=== PATIENT | male | born 1965 | race Caucasian/White ===

== ENCOUNTER 2018-10-02 07:58 | Inpatient (IN) | payer MEDICAID ==
[~2018-10-02] VITALS: Ht 170.2 cm; Wt 64.6 kg
--- NOTE | 2018-10-02 07:58 | NUR ---
Placed in room 5 . Placed on bmet, blood pressure machine and pulse oximeter. To gown for exam. Side rails up. Report given to ARMIDA Lindsey.
[2018-10-02 08:09] VITALS: BP_SYST 132
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
[2018-10-02 08:19] LABS: HEMOGLOBIN 11.2 g/dL (14.0-18.0); RED BLOOD CELL COUNT(AUTO) 4.24 MIL/uL (4.2-6.2); WHITE BLOOD COUNT (AUTO) 7.6 K/uL (4.8-10.8)
[2018-10-02 08:20] LABS: BASOPHILS # (AUTO) 0.1 K/uL (0.0-0.2); BASOPHILS % (AUTO) 0.8 % (0.0-2.0); EOSINOPHILS # (AUTO) 0.3 K/uL (0.0-0.4); EOSINOPHILS % (AUTO) 3.4 % (0.0-4.0); HEMATOCRIT 34.9 % (36-54); LYMPHOCYTES # (AUTO) 1.2 K/uL (1.0-5.5); LYMPHOCYTES % (AUTO) 15.4 % (20.5-51.5); MEAN CORPUSCULAR HEMOGLOBIN 26 pg (27-31); MEAN CORPUSCULAR HGB CONC 32 % (32-36); MEAN CORPUSCULAR VOLUME 82 fL (79.0-98.0); MONOCYTES # (AUTO) 0.7 K/uL (0.0-1.0); MONOCYTES % (AUTO) 8.6 % (1.7-9.3); NEUTROPHILS # (AUTO) 5.5 K/uL (1.8-7.7); NEUTROPHILS % (AUTO) 71.8 % (40.0-70.0); PLATELET COUNT (AUTO) 334 K/uL (130-430); RED CELL DISTRIBUTION WIDTH 16.8 % (9.0-15.0)
[2018-10-02 08:30] LABS: ANION GAP 9 (5-15); CALCIUM 8.8 mg/dL (8.4-11.0); CHLORIDE 102 mmol/L (98-107); CREATININE 0.95 mg/dL (0.55-1.30); GLUCOSE 80 mg/dL (70-99); POTASSIUM 3.5 mmol/L (3.5-5.1); SODIUM SERUM 138 mmol/L (136-145); UREA NITROGEN, BLOOD 15 mg/dL (8-21)
--- NOTE | 2018-10-02 08:30 | NUR ---
Pt resting in bed, anxious, not violent, not agitated. Cooperative with medical staff and treatment.
[2018-10-02 08:31] LABS: GFR AFRICAN AMERICAN 107 mL/min (>90)
[2018-10-02 08:35] LABS: ALANINE AMINOTRANSFERASE 21 U/L (12-78); ALBUMIN 3.9 g/dL (3.4-4.8); ASPARTATE AMINOTRANSFERASE 30 U/L (10-37); TOTAL BILIRUBIN 0.4 mg/dL (0.0-1.0)
--- NOTE | 2018-10-02 08:35 | NUR ---
DR Martin at bedside
[2018-10-02 08:38] LABS: ACETAMINOPHEN < 1 ug/mL (1-30)
[2018-10-02 08:39] LABS: ALCOHOL, BLOOD < 3 mg/dL (<10)
--- NOTE | 2018-10-02 08:40 | NUR ---
ER Dr. Martin at bedside examining patient.
[2018-10-02] MEDS ORDERED: NACL 0.9% 1,000 ML IV ONE (08:45)
--- NOTE | 2018-10-02 08:45 | NUR ---
EKG 12 lead completed
--- NOTE | 2018-10-02 08:45 | NUR ---
Pt resting in bed, anxious, not violent, not agitated. Cooperative with medical staff and treatment. Completed EKG, Dr. Martin examined patient, awaiting new orders
--- NOTE | 2018-10-02 09:00 | NUR ---
Pt resting in bed, anxious, not violent, not agitated. Cooperative with medical staff and treatment.
--- NOTE | 2018-10-02 09:15 | NUR ---
# 18 gauge angiocath placed to RT AC. Use of asceptic technique. Opsite placed over site. Blood return noted. Blood for lab drawn from site. Flushed with 10 cc of normal saline. No evidence of infiltration noted. Patient tolerated well.
--- NOTE | 2018-10-02 09:15 | NUR ---
Peripheral IV inserted to RT AC, 18GA, x1 attempt. Flushed well, line is patent, NS bolus running. Pt resting in bed, anxious, not violent, not agitated. Cooperative with medical staff and treatment.
--- NOTE | 2018-10-02 09:20 | NUR ---
BREAKFAST TRAY PROVIDED
--- NOTE | 2018-10-02 09:30 | NUR ---
Patient sitting up eating breakfast. Pt is not violent or agitated at this time. Patient remains cooperative with medical staff and treatment. Side rails are up, bed locked in lowest position, will continue to monitor.
--- NOTE | 2018-10-02 09:38 | NUR ---
Security in to wand patient.
--- NOTE | 2018-10-02 09:45 | NUR ---
Patient resting in bed with eyes closed. Pt is not violent or agitated at this time. Patient remains cooperative with medical staff and treatment. Side rails are up, bed locked in lowest position, will continue to monitor.
--- NOTE | 2018-10-02 10:00 | NUR ---
Patient attempting to give urine sample, in bed with urinal. Pt is not violent or agitated at this time. Patient remains cooperative with medical staff and treatment. Side rails are up, bed locked in lowest position, will continue to monitor.
--- NOTE | 2018-10-02 10:15 | NUR ---
Pt not cooperating with urine sample, filled urinal with water from cup. Otherwise not combative or agressive. Side rails are up, bed locked in lowest position, will continue to monitor.
--- NOTE | 2018-10-02 10:20 | NUR ---
Patient refusing uring sample, patient urinated on clothing and bed linens rather than give urine sample.
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
--- NOTE | 2018-10-02 10:45 | NUR ---
Patient resting in bed with eyes closed. Pt is not violent or agitated at this time. Side rails are up, bed locked in lowest position, will continue to monitor.
[2018-10-02 11:00] LABS: BARBITURATE, URINE NEGATIVE (NEG <=200); BENZODIAZEPINE, URINE POSITIVE (NEG <=150); CANNABINOID, URINE NEGATIVE (NEG <=50); COCAINE, URINE NEGATIVE (NEG <=150); METHAMPHETAMINES SCREEN,URINE POSITIVE (NEG <=500); OPIATE, URINE POSITIVE (NEG <=100); PHENCYCLIDINE SCREEN,URINE NEGATIVE (NEG <=25); URINE AMPHETAMINE POSITIVE (NEG <=500); URINE METHADONE POSITIVE (NEG <=200)
--- NOTE | 2018-10-02 11:00 | NUR ---
Patient laying on his side with eyes closed, is no longer following instructions, seems aggitated but is not verbalizing, not responding to questions, not violent or combative. Side rails are up, bed locked in lowest position, will continue to monitor.
[2018-10-02 11:01] LABS: UR TRICYCLIC ANTIDEPRESSANTS NEGATIVE (NEG <=300); URINE OXYCODONE SCREEN NEGATIVE (NEG <=100); URINE PROPOXYPHENE SCREEN NEGATIVE (NEG <=300)
--- NOTE | 2018-10-02 11:15 | NUR ---
Patient continues laying on his side with eyes closed, will not answer questions, will not follow instructions, seems aggitated but is not verbalizing, not violent or combative. Side rails are up, bed locked in lowest position, will continue to monitor.
--- NOTE | 2018-10-02 11:30 | NUR ---
Patient continues laying on his side with eyes closed, continues not responding to questions, remains not violent or combative. Side rails are up, bed locked in lowest position, will continue to monitor.
--- NOTE | 2018-10-02 11:45 | NUR ---
Patient sleeping, laying on his side with eyes closed, remains not violent or combative. Side rails are up, bed locked in lowest position, will continue to monitor.
--- NOTE | 2018-10-02 12:00 | NUR ---
Note davenettie in ED - 10/02/18 at 1240 by [email or web address] Patient sleeping, remains non violent or combative. Side rails are up, bed locked in lowest position, will continue to monitor.
--- NOTE | 2018-10-02 12:00 | NUR ---
Vital signs taken, patient sleeping, laying on his side with eyes closed, remains not violent or combative. Side rails are up, bed locked in lowest position, will continue to monitor.
--- NOTE | 2018-10-02 12:15 | NUR ---
Patient sleeping, remains non violent or combative. Side rails are up, bed locked in lowest position, will continue to monitor.
--- NOTE | 2018-10-02 12:30 | NUR ---
Patient sleeping, remains non violent or combative. Side rails are up, bed locked in lowest position, will continue to monitor.
--- NOTE | 2018-10-02 12:45 | NUR ---
Patient sleeping, no signs of distress noted, not combative or hostile. Bed locked in lowest position, will continue to monitor.
--- NOTE | 2018-10-02 13:00 | NUR ---
Patient sleeping, no signs of distress noted, not combative or hostile. Bed locked in lowest position, will continue to monitor.
--- NOTE | 2018-10-02 13:15 | NUR ---
LUNCH TRAY PROVIDED
[2018-10-02] MEDS ORDERED: METHADONE HCL 10 MG TABLET PO ONE (13:30)
[2018-10-02] MEDS ORDERED: clonazePAM 0.5 MG TABLET PO ONE (13:30)
--- NOTE | 2018-10-02 13:45 | NUR ---
Patient laying in bed resting, offered lunch but patient refused, is able to follow directions again, not combative or hostile. Bed locked in lowest position, will continue to monitor.
--- NOTE | 2018-10-02 14:00 | NUR ---
Patient laying in bed resting, is able to follow directions again, not combative or hostile. Bed locked in lowest position, will continue to monitor.
--- NOTE | 2018-10-02 14:15 | NUR ---
Patient sleeping, no sign of distress noted, side rails are up, bed locked in lowest position, will continue to monitor.
--- NOTE | 2018-10-02 14:30 | NUR ---
Patient sleeping, no sign of distress noted, side rails are up, bed locked in lowest position, will continue to monitor.
--- NOTE | 2018-10-02 14:45 | NUR ---
Patient saying he wants to leave, then closes eyes and doesn't respond to questions. Still not combative or agressive, but not cooperative. No sign of distress noted, side rails are up, bed locked in lowest position, will continue to monitor.
--- NOTE | 2018-10-02 14:50 | NUR ---
PET arrived to evaluate patient.
--- NOTE | 2018-10-02 15:00 | NUR ---
Patient resting quietly with eyes closed, no signs of distress noted, not agressive or combative at this time, bed locked in lowest position, will continue to monitor.
[2018-10-02] MEDS ORDERED: CLINDAMYCIN 900 mg/50mL D5W 50 ML IV ONE (15:45)
--- NOTE | 2018-10-02 15:45 | NUR ---
Patient resting with eyes closed, no signs of distress noted, no signs of aggitation or agression. Bed locked in lowest position, will continue to monitor.
--- NOTE | 2018-10-02 16:00 | NUR ---
Patient resting with eyes closed, no signs of distress noted, no signs of aggitation or agression. Bed locked in lowest position, will continue to monitor.
--- NOTE | 2018-10-02 16:15 | NUR ---
Patient delusional trying to get out of bed, trying to push past and leave building, he is saying someone is trying to kill him. Another nurse assisted in getting him back into bed. Patient is now lying in bed calm.
--- NOTE | 2018-10-02 16:30 | NUR ---
Patient remains delusional trying to get out of bed.
[2018-10-02] MEDS ORDERED: DIPHENHYDRAMINE INJ 50 MG/ML VIAL IM ONE (16:45)
[2018-10-02] MEDS ORDERED: DIPHENHYDRAMINE INJ 50 MG/ML VIAL IVP ONE (16:45)
[2018-10-02] MEDS ORDERED: LORazepam 2 MG/ML VIAL (FOR ER USE) IM ONE (16:45)
[2018-10-02] MEDS ORDERED: HALOPERIDOL LACTATE 5 MG/ML VIAL IM ONE (16:45)
[2018-10-02] MEDS ORDERED: LORazepam 2 MG/ML VIAL (FOR ER USE) IVP ONE (16:45)
[2018-10-02] MEDS ORDERED: HALOPERIDOL LACTATE 5 MG/ML VIAL IVP ONE (16:45)
--- NOTE | 2018-10-02 16:45 | NUR ---
Patient remains delusional trying to get out of bed.
--- NOTE | 2018-10-02 17:00 | NUR ---
Patient getting more and more aggitated, remains delusional trying to get out of bed.
--- NOTE | 2018-10-02 17:15 | NUR ---
Patient agressive and combative, trying to push past nurses and leave, danger to self, restraints started, sedatives administered as ordered. Will continue to monitor.
--- NOTE | 2018-10-02 17:30 | NUR ---
Patient now sleeping, restraints are off, but are at bedside. Breathing is even and unlabored, vitals WNL, no sign of distress noted, will continue to monitor.
--- NOTE | 2018-10-02 17:42 | NUR ---
Patient will be admitted to care of Dr. Oswald. Admitted to Medsurg unit. ARMIDA Casey will call back with room assignment. Belongings list completed. Summary report printed. Report will be given at bedside.
--- NOTE | 2018-10-02 17:45 | NUR ---
Patient is sleeping, restraints are off, but are at bedside. Breathing is even and unlabored, O2 Sat WNL, no sign of distress noted, bed locked in lowest position, will continue to monitor.
--- NOTE | 2018-10-02 18:15 | NUR ---
ADMISSION NOTE Received patient from ER via jaceryogesh, received report from michael HUFFMAN. Patient admitted with diagnosis of cellulitis. Patient oriented to hospital routine, call light, toileting and safety.
[2018-10-02 18:16] VITALS: BP_SYST 114
--- NOTE | 2018-10-02 18:16 | NUR ---
Patient transferred via gurney and 2 RNs to [facility] room 105A, bedside report given to Cecilia RN for continuation of care.
--- NOTE | 2018-10-02 18:35 | NUR ---
OPENING MY NOTES:PT WAS SLEEPING WHEN HE CAME AT ROOM 105A.NO SIGNS OF ANY DISTRESS.CONTINUE OF MONITORING.
--- NOTE | 2018-10-02 18:45 | NUR ---
PT IS RESTING NO SIGNS OF ANY DISTRESS.CONTINUE OF MONITORING.
--- NOTE | 2018-10-02 19:00 | NUR ---
PT STILL SLEEPING DIELECTRIC MACHINE OPERATOR SIGNS OF ANY DISTRESS,WILL CONTINUE OF MONITORING.
--- NOTE | 2018-10-02 19:15 | NUR ---
PT STILL SLEEPING NO SIGNS OF ANY DISTRESS.WILL CONTINUE OF MONITORING.
--- NOTE | 2018-10-02 19:30 | NUR ---
OPENING NOTES Pt and endorsement received from day shift nurse. Pt is resting in bed with both eyes closed. With visible chest rise and fall with unlabored breathing noted. Sitter Analyn at bedside. No signs of acute distress or SOB noted. Safety precautions in place with 3 side rails up, bed alarm on, locked and in lowest position. Call light with pt. Will continue to monitor.
--- NOTE | 2018-10-02 19:30 | NUR ---
PT STILL SLEEPING,NIGHT NURSE CAME TO CHECKED THE PT.WILL CONTINUE OF MONITORING.
--- NOTE | 2018-10-02 19:45 | NUR ---
PT IS RESTING,NO SIGNS OF ANY DISTRESS.WILL CONTINUE OF MONITORING.
[2018-10-02] MEDS ORDERED: MORPHINE 4 MG/ML INJ. SYRINGE IVP PRN (20:00)
[2018-10-02] MEDS ORDERED: ONDANSETRON HCL 4 MG/2 ML VIAL IVP PRN (20:00)
[2018-10-02] MEDS ORDERED: ACETAMINOPHEN 325 MG TABLET PO PRN (20:00)
[2018-10-02] MEDS ORDERED: METOCLOPRAMIDE HCL 10 MG/2 ML VIAL IVP PRN (20:00)
--- NOTE | 2018-10-02 20:00 | NUR ---
PT QUIETLY SLEEPING NO SIGNS OF ANY DISTRESS.WILL CONTINUE OF MONITORING.
--- NOTE | 2018-10-02 20:15 | NUR ---
PT IS SLEEPING.NO SIGNS OF ANY DISTRESS.WILL CONTINUE OF MONITORING.
--- NOTE | 2018-10-02 20:30 | NUR ---
PT STILL SLEEPING,NO SIGNS OF ANY DISTRESS. WILL CONTINUE OF MONITORING.
--- NOTE | 2018-10-02 20:31 | NUR ---
CONSULTATION PAGED/CALLED Reason for Consultation: SCHIZOPHRENIA Person Who was Notified: ADONIS Consulting Physician: DOMENICO Hydraulic Punch Press Operator Specialty: Ordering Physician: SAVANAH
--- NOTE | 2018-10-02 20:45 | NUR ---
PT STILL SLEEPING ,NO SIGNS OF ANY DISTRESS WILL CONTINUE OF MONITORING.
[2018-10-02] MEDS ORDERED: VANCOMYCIN HCL 1 GM/NS PREMIX 250 ML IV SCH (21:00)
--- NOTE | 2018-10-02 21:00 | NUR ---
PT STILL SLEEPING,NO SIGNS OF ANY DISTRESS WILL CONTINUE OF MONITORING.
[2018-10-02] MEDS ORDERED: VANCOMYCIN HCL 1000 MG/VIAL IV ONE (21:08)
[2018-10-02] MEDS ORDERED: cefTRIAXone 1 GM IVPB PREMIX 0 ML IV ONE (21:08)
--- NOTE | 2018-10-02 21:15 | NUR ---
PT WOKE UP AND ASKED FOR URINAL,THEN SUDDENLY BACK TO SLEEP.NO SIGNS OF ANY DISTRESS WILL CONTINUE OF MONITORING.
--- NOTE | 2018-10-02 21:30 | NUR ---
PT SI SLEEPING,NO SIGNS OF ANY DISTRESS WILL CONTINUE OF MONITORING.
--- NOTE | 2018-10-02 21:45 | NUR ---
PT IS SLEEPING NO SIGNS OF ANY DISTRESS WILL CONTINUE OF MONITORING.
[2018-10-02 21:59] VITALS: BP_SYST 105
--- NOTE | 2018-10-02 22:00 | NUR ---
PT STILL SLEEPING SOMETIMES HE MOVES ANG CONTINUE SLEEPING.NO SIGNS OF ANY DISTRESS.WILL CONTINUE OF MONITORING.
--- NOTE | 2018-10-02 22:15 | NUR ---
PT STILL SLEEPING,NO SIGNS OF ANY DISTRESS. WILL CONTINUE OF MONITORING.
--- NOTE | 2018-10-02 22:30 | NUR ---
PT IS SLEEPING NO SIGNS OF ANY DISTRESS CONTINUE OF MONITORING.
--- NOTE | 2018-10-02 22:45 | NUR ---
PT STILL SLEEPING,NO SIGNS OF ANY DISTRESS CONTINUE OF MONITORING.
--- NOTE | 2018-10-02 23:00 | NUR ---
PT STILL SLEEPING NO SIGNS OF ANY DISTRESS.CONTINUE OF MONITORING.
--- NOTE | 2018-10-02 23:15 | NUR ---
PT STILL SLEEPING NO SIGNS OF ANY DISTRESS,CONTINUE OF MONITORING.
--- NOTE | 2018-10-02 23:30 | NUR ---
PT STILL SLEEPING
--- NOTE | 2018-10-02 23:45 | NUR ---
PT STILL SLEEPING,NO SIGNS OF ANY DISTRESS CONTINUE OF MONITORING.
[2018-10-03] VITALS (8 sets, daily range): BP systolic 93–132
--- NOTE | 2018-10-03 | NUR ---
PT STILL SLEEPING WHILE TAKING HIS VITAL SIGNS,NO SIGNS OF ANY DISTRESS CONTINUE OF MONITORING.
--- NOTE | 2018-10-03 00:15 | NUR ---
PT STILL SLEEPING,NO SIGNS OF ANY DISTRESS.CONTINUE OF MONITORING.
--- NOTE | 2018-10-03 00:30 | NUR ---
PT SLEEPING ON BED NO SIGNS OF ANY DISTRESS 3SIDE RAILS IS UP.CONTINUE OF MONITORING.
--- NOTE | 2018-10-03 00:45 | NUR ---
PT STILL SLEEPING NO SIGNS OF ANY DISTRESS CONTINUE OF ANY DISTRESS.
--- NOTE | 2018-10-03 01:00 | NUR ---
PT IS RESTING,CONTINUE OF MONITORING
--- NOTE | 2018-10-03 01:15 | NUR ---
PT RESTING,CONTINUE OF MONITORING.
--- NOTE | 2018-10-03 01:17 | NUR ---
RESTING Pt is resting in bed with both eyes closed. With visible chest rise and fall with unlabored breathing noted. Pt easily arousable with light shaking, would respond and speak clearly then goes back to sleep. No signs of acute distress or SOB noted. SitDe Luna at bedside at this time. Safety precautions in place and call light with pt. Will continue to monitor.
--- NOTE | 2018-10-03 01:30 | NUR ---
PT STILL SLEEPING NO SIGNS OF ANY DISTRESS.CONTINUE OF MONITORING.
--- NOTE | 2018-10-03 01:45 | NUR ---
PT CHANGED HIS POSITIONED NOW HIS FOLDING HIS 2 LEGS,ASKED HIM IF HIS DONE WITH URINAL HE REPLIED NOT YET.NO SIGNS OF ANY DISTRESS.CONTINUE OF MONITORING.
--- NOTE | 2018-10-03 02:00 | NUR ---
PT STILL SLEEPING,NO SIGNS OF ANY DISTRESS CONTINUE OF MONITORING.
--- NOTE | 2018-10-03 02:15 | NUR ---
PT WOKE UP HE VOID 450ML OF URINE THEN HE BACK TO SLEEP.NO SIGNS OF ANY DISTRESS.CONTINUE OF MONITORING.
--- NOTE | 2018-10-03 02:30 | NUR ---
PT IS SLEEPING,NO SIGNS OF ANY DISTRESS.CONTINUE OF MONITORING.
--- NOTE | 2018-10-03 02:45 | NUR ---
PT STILL SLEEPING,NO SIGNS OF ANY DISTRESS.CONTINUE OF MONITORING.
--- NOTE | 2018-10-03 03:00 | NUR ---
PT STILL SLEEPING,NO SIGNS OF ANY DISTRESS.CONTINUE OF MONITORING.
--- NOTE | 2018-10-03 03:08 | NUR ---
RESTING Pt is resting in bed with both eyes closed. With visible chest rise and fall with unlabored breathing noted. Pt easily arousable to voice and light shaking, would respond and speak clearly then goes back to sleep. No signs of acute distress or SOB noted. Sitter Analyn at bedside. Safety precautions in place and call light with pt. Will continue to monitor.
--- NOTE | 2018-10-03 03:15 | NUR ---
PT STILL SLEEPING MID NIGHT NURSE GIAN PARKER THAT 5150 OBSERVATION IS NO LONGER CLOSING MY NOTES. Addendum: 10/03/18 at 0515 by Leona Ambrosio CNA PT STILL ON HOLD NO NEED TO NOTES EVERY 15 MINUTES
[2018-10-03] MEDS: MORPHINE 4 MG/ML INJ. SYRINGE IVP PRN ×2 (04:13→21:13)
--- NOTE | 2018-10-03 04:13 | NUR ---
MORPHINE 4MG GIVEN Pt complained of generalized body pain with a scale of 10/10. Morphine 4mg IVP given as ordered. No signs of acute distress or SOB noted. Encouraged deep breathing exercises and position of comfort. Safety precautions in place and call light with pt. Will continue to monitor.
--- NOTE | 2018-10-03 06:10 | NUR ---
METHADONE CLINIC Spoke to Brittany from [facility] that someone left a message to their clinic asking the dosage of Methadone that the pt takes. Brittany said to fax them a consent for "Medical Record Release" signed by the pt and they will fax the information about the pt's Methadone dosage. Their fax number is [phone]. Informed charge nurse Lou and will endorse to day shift nurse.
--- NOTE | 2018-10-03 06:26 | NUR ---
CLOSING NOTES Pt is resting in bed with both eyes closed. With visible chest rise and fall with unlabored breathing noted. Sitter ARMIDA Moreira at bedside. No complains of pain at this time. No signs of acute distress or SOB noted. All needs attended throughout the shift. Safety precautions maintained with 3 side rails up, bed alarm on, locked and in lowest position. Call light with pt. Will endorse to day shift nurse.
--- NOTE | 2018-10-03 06:49 | NUR ---
Nutrition Update Yobany Scale 17 noted. Pt admitted for cellulitis Diet: regular diet BMI: 22.3 kg/m2 RD to follow per nutrition care standards.
--- NOTE | 2018-10-03 06:58 | NUR ---
Woke up and opened eyes momentarily. Asked to call Methadone clinic to find out about his methadone. Informed we're working on it. Closed eyes calmly and went back to sleep.
--- NOTE | 2018-10-03 07:41 | NUR ---
AM rounds: Received patient asleep. Verbally responsive. Cooperative. Does not want to eat breakfast yet, wants to back to sleep.
--- NOTE | 2018-10-03 08:36 | NUR ---
Social Service Note: CLINICAL TRIAL SPECIALIST has reviewed pt's chart; Pt is on a 5150. CLINICAL TRIAL SPECIALIST has faxed pt's information to the [facility] ([phone] [phone]). CLINICAL TRIAL SPECIALIST will follow up with [facility] to see if they can locate a psychiatric bed.
--- NOTE | 2018-10-03 08:53 | NUR ---
Methadone Clinic: Patient states that he goes to [facility] for his methadone. Request for dosage and frequency faxed to [phone].
--- NOTE | 2018-10-03 09:12 | NUR ---
CONSULTATION PAGED/CALLED Reason for Consultation: CELLULITIS Person Who was Notified: SHONNA Consulting Physician: Cream Dipper Specialty: INFECTIOUS DSE Ordering Physician: DR. PAVON
[2018-10-03] MEDS ORDERED: METH10OR PO (09:34)
--- NOTE | 2018-10-03 10:09 | NUR ---
XRAY: Chest xray and xray of the left foot is done. Patient was cooperative.
[2018-10-03] MEDS: D5NS 1,000 ML IV SCH ×2 (10:12→21:13)
--- NOTE | 2018-10-03 11:07 | NUR ---
CT head: Test is completed without any untoward behavior. Patient was cooperative.
[2018-10-03] MEDS: VANCOMYCIN HCL 1,000 MG in NS 250 ML IV SCH ×2 (11:22→22:31)
--- NOTE | 2018-10-03 11:30 | NUR ---
Wound care: 1: Left lateral heel: Cleansed with normal saline, left open to air. 2: Left dorsal foot: Cleansed with normal saline, foam dressing placed in between big, 2nd and 3rd toe. Dorsal wound, covered with foam dressing and wrapped with kerlix.
--- NOTE | 2018-10-03 12:43 | NUR ---
Rounds: Patient is asleep but easily arousable. No distress noted.
--- NOTE | 2018-10-03 13:00 | NUR ---
Neuro assessment: Patient woke up inquiring about his methadone.Informed that medication information has been received from [facility], has yet to review. Patient went back to sleep right away.
[2018-10-03] MEDS: ceFAZolin SODIUM 1 GM in D5W 50 ML IV SCH ×2 (14:47→21:13)
--- NOTE | 2018-10-03 16:43 | NUR ---
Neuro assessment: Patient is asleep, wakes up when he has to use to urinal.
--- NOTE | 2018-10-03 17:29 | NUR ---
Chest Xray result: Result was seen by Dr. Oswald, no new order.
--- NOTE | 2018-10-03 18:20 | NUR ---
End of shift: Needs attended. Patient is asleep. No change in assessment.
--- NOTE | 2018-10-03 19:55 | NUR ---
Initial note: Received report from dayshift RN. Patient is in bed resting, no acute distress. Respirations are even and unlabored on room air. IV noted to patient's left forearm, IV fluids infusing well. Sitter at bedside for safety. Call light with patient. Safety, fall precautions in place. Will continue to monitor.
--- NOTE | 2018-10-03 20:41 | NUR ---
FOLLOW UPCONSULTATION PAGED/CALLED Reason for Consultation: SCHIZOPRENIA Person Who was Notified: JODY Consulting Physician: DOMENICO Instructional Materials Director Specialty: Ordering Physician: SAVANAH
--- NOTE | 2018-10-03 21:19 | NUR ---
Pain: Patient complaining of severe back pain. PRN Morphine 4MG indicated. Educated patient regarding medication side effects, patient verbalized understanding. Call light with patient. Will continue monitoring.
--- NOTE | 2018-10-03 23:52 | NUR ---
Rounds: Patient is resting in bed with eyes closed. No acute distress. IV fluids infusing well. Sitter at bedside, will continue to monitor.
[2018-10-04] MEDS: MORPHINE 4 MG/ML INJ. SYRINGE IVP PRN ×5 (02:45→23:54)
--- NOTE | 2018-10-04 02:45 | NUR ---
Pain: Patient is awake, complaining of severe back pain. PRN Morphine 4 MG indicated. Administered medication intravenously per MD order. Call light with patient. Sitter at bedside, will continue monitoring.
[2018-10-04] MEDS: D5NS 1,000 ML IV SCH ×3 (05:04→18:26)
[2018-10-04] MEDS: ceFAZolin SODIUM 1 GM in D5W 50 ML IV SCH ×3 (05:04→21:07)
--- NOTE | 2018-10-04 05:36 | NUR ---
Closing note: Patient is resting in bed with eyes closed. Dressing to left foot is clean, dry, intact. IV fluids infusing well. All needs met. Sitter at bedside. Will continue to monitor until endorsement of care.
--- NOTE | 2018-10-04 06:09 | NUR ---
DR ACUÑA CALLED DOCTOR DOMENICO MAYS AND SPOKE WITH HIM AND NOTIFIED HIM THAT THERE IS A CONSULT FOR HIM. THAT WAS PLACED OVER 24 HOURS AGO. AND HE SAID HIM OR SOMEONE FROM HIS GROUP WILL COME AND SEE HIM. NOTIFIED RN AND CHARGE NURSE.
--- NOTE | 2018-10-04 06:33 | NUR ---
Dr. Sanchez: MD at bedside to assess patient. Per MD, patient is cleared for discharge from a psych standpoint. Addendum: 10/04/18 at 0731 by Taz Brandt RN Received verbal order from MD to D/C patient's 5150 hold. Per MD, he will note it in his dictation. Will input additional nursing order.
--- NOTE | 2018-10-04 07:20 | NUR ---
Opening Note patient resting in bed, eyes closed, breathing unlabored and symmetrical, no signs of distress, safety precautions in place, call light and bedside table left within reach, room close to station, will continue to monitor patient
--- NOTE | 2018-10-04 08:11 | NUR ---
Pain Meds given at this time per protocol, educated patient regarding med, verbalized understanding, IV site remains patent, breathing unlabored, no other needs at this time, educated patient on use of call light for assistance, verbalized understanding, call light and bedside table left within reach, room close to station, will continue to monitor
[2018-10-04 08:13] VITALS: BP_SYST 102
[2018-10-04] MEDS: VANCOMYCIN HCL 1,000 MG in NS 250 ML IV SCH ×2 (10:52→22:13)
--- NOTE | 2018-10-04 10:55 | NUR ---
Antibiotics hung at this time as scheduled, educated patient regarding med, verbalized understanding, IV site remains patent, public health social worker at bedside, educated patient on use of call light for assistance, verbalized understanding, call light and bedside table left within reach, will continue to monitor
--- NOTE | 2018-10-04 11:18 | NUR ---
SS NOTES: MATCHBOOK ASSEMBLER met with patient at bedside for "homelessness". 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 Pt states he currently lives in his van (currently parked at [facility] parking lot) and stays around [place], where the methadone clinic ([facility]- [address], [place] [address]) is located. Pt states he has been going to that clinic for 2 years now. Pt states he has anxiety problems and receives Clonopin from his "drug dealer". Pt denies seeing a therapist/psychiatrist currently. Pt states he receives SSI of $900/month but lost his debit card on his way to the hospital and does not remember which bank the direct deposit goes to. Pt states he has a history of suicidal ideation, and a history of suicide attempt via OD on heroin "a couple of years ago". Pt states he has a history of 1 voluntary psych admission in [place]. Pt denies feeling suicidal/homicidal currently. Pt states he identifies "God" as his support but not connected to any christianity. Pt might be needing a taxi voucher, pending if pt can get a hold of daughter to pick him up upon discharge. MATCHBOOK ASSEMBLER left voicemail for security to provide pt with appropriate weather clothing. MATCHBOOK ASSEMBLER encouraged pt to call [facility] Employment Coach and request access on his SSI. MATCHBOOK ASSEMBLER informed pt to inform RN where he would want to be discharged to so that taxi voucher can be arranged ([facility] vs [facility]). MATCHBOOK ASSEMBLER provided pt with winter long-term list, Homeless Assistance Resources and Homeless waiver (on chart). ARMIDA Canchola notified of transport needs. SS correction warden will arrange taxi transport when discharge.
[2018-10-04 11:25] VITALS: BP_SYST 92
--- NOTE | 2018-10-04 11:35 | NUR ---
WOUND EVALUATION: Late note for 113 secondary to patient care. Wound Consult received from Dr. Oswald. Thank you, Dr. Oswald, for the consult. Patient received in a Jesus Bed with a mattress, awake, alert, and oriented. Patient is unable to turn independently. Yobany Score is a 17. Past Medical History: Left lower extremity cellulitis. No other past medical history was obtainable. Recent Labs: WBC 7.6, RBC 4.24, hemoglobin 11.2, hematocrit 34.9, BUN 15, creatinine 0.95, GFR 89, alkaline phosphatase 166. Microbiology: Blood culture results �2 in progress. Intrinsic factors that delay wound healing: Poor nutrition. Extrinsic factors that delay wound healing: Decreased mobility. Wound Assessment: 1. Left dorsal foot, near second toe: Wound, present on admission. Wound bed has 80% yellow slough, 20% pink tissue. No odor, no drainage. Periwound intact. Surrounding tissue has dried, crusty exudate. Wound measures 4.3 cm x 3.0 cm x 0.3 cm. 2. Left medial calcaneus: Wound, present on admission. Wound bed has 60% yellow slough, 30% black eschar, 10% red tissue. No odor, scant serous drainage. Periwound intact. Surrounding tissue has dry, flaky skin. Wound measures 2.3 cm x 3.0 cm. Recommend: Cleanse wound with normal saline. Place moisture barrier cream onto aiden-wound. Cover with foam dressing. Perform wound care daily, and as needed for dressing soiling or dislodgement. Also recommend: Encourage and assist patient as needed with repositioning every 2 hours with pillow support and off-load pressure areas with pillows for pressure re-distribution. Offload, elevate and float bilateral heels with pillows. Perform skin care and monitor skin integrity Q shift. Addendum: 10/04/18 at 1745 by Dangelo Cooper RN Addendum: Recent stated that the wounds were the result of a dog bite. The treatment for the wounds should be as follows: Cleanse wounds with normal saline. Apply moisture barrier cream to aiden-wounds. Apply Venelex ointment to wound beds. Cover with foam dressings. Perform wound care daily, and as needed for dressing soiling or dislodgement.
--- NOTE | 2018-10-04 11:35 | NUR ---
Wound Care Consult at this time, patient tolerated well, denies pain at this time, breathing unlabored and symmetrical, safety precautions in place, will continue to monitor
[2018-10-04 12:08] VITALS: BP_SYST 145
--- NOTE | 2018-10-04 12:30 | NUR ---
Dr. Margret Schmitt MD aware that patient cleared by Radha Becker
--- NOTE | 2018-10-04 14:17 | NUR ---
Antibiotics/Pain Meds given at this time, educated patient regarding meds, verbalized understanding, IV site remains patent, breathing unlabored on room air, he is positioned to his side, educated patient on use of call light for assistance, verbalized understanding, call light and bedside table left within reach, will continue to monitor
[2018-10-04 14:32] LABS: FOLATE (FOLIC ACID) 12.4 ng/mL (>3.0)
[2018-10-04 15:24] VITALS: BP_SYST 119
--- NOTE | 2018-10-04 15:51 | NUR ---
Mitesh Oswald informed him of patient's complaints of anxiety and that he takes Klonopin at home, MD gave orders for ativan, will educated patient and implement
[2018-10-04] MEDS: LORazepam 1 MG TABLET PO PRN ×2 (16:02→22:13)
--- NOTE | 2018-10-04 16:06 | NUR ---
ativan given at this time, educated patient regarding med, verbalized understanding, tolerated well by mouth, denies pain, educated patient on use of call light for assistance, verbalized understanding, call light and bedside table left within reach, will continue to monitor
[2018-10-04] MEDS ORDERED: BALSAM PERU/CASTOR OIL 60 GM OINT...G. TP ONE (18:00)
--- NOTE | 2018-10-04 18:15 | NUR ---
Awaiting pharmacy to bring venelex for wound care, spoke with Lazarus
--- NOTE | 2018-10-04 18:33 | NUR ---
Closing Note patient resting in bed, awake and alert, pain meds given at this time per protocol, educated patient regarding med, verbalized understanding, IV remains patent, new bag of fluids hung, educated patient on use of call light for assistance, verbalized understanding, call light and bedside table left within reach, will endorse to veterinary technology instructor nurse
[2018-10-04 20:00] VITALS: BP_SYST 118
--- NOTE | 2018-10-04 20:00 | NUR ---
Initial note: Received report from dayshift RN. Patient is resting in bed, no distress. Alert and oriented x4. Breathing is even, unlabored. IV fluids infusing well to left forearm IV site. Call light with patient. Will continue to monitor.
--- NOTE | 2018-10-04 23:54 | NUR ---
Pain: Patient is complaining of lower back pain 04/10. PRN Morphine 4 MG indicated. Administered medication per MD order. Education provided regarding side effects, patient verbalized understanding. Call light with patient. Will continue to monitor.
--- NOTE | 2018-10-05 00:10 | NUR ---
Wound care: Wounds to patient's dorsum and interior ankle of left foot were cleansed with NS, patted dry with sterile gauze, treated with Venelex, and covered with foam dressing. Patient tolerated well. Call light with patient. Will continue monitoring.
[2018-10-05 00:19] VITALS: BP_SYST 121
[2018-10-05] MEDS: MORPHINE 4 MG/ML INJ. SYRINGE IVP PRN ×2 (04:18→09:26)
--- NOTE | 2018-10-05 04:18 | NUR ---
Pain: Patient complaining of severe back pain. PRN Morphine 4 MG indicated. Administered medication intravenously per MD order. Call light with patient. Will continue to monitor.
[2018-10-05] MEDS: ceFAZolin SODIUM 1 GM in D5W 50 ML IV SCH (05:51)
--- NOTE | 2018-10-05 06:04 | NUR ---
Closing note: Patient is in bed resting, no distress. IV antibiotics currently infusing at this time. IV site is patent, benign. All needs met. Safety, fall precautions in place. Will endorse to batool HUFFMAN.
--- NOTE | 2018-10-05 07:13 | NUR ---
Opening Note patient resting in bed, eyes closed, positioned to his side, no signs of distress, breathing unlabored and symmetrical, safety precautions in place, call light and bedside table left within reach, will continue to monitor
[2018-10-05] MEDS ORDERED: BALSAM PERU/CASTOR OIL 60 GM OINT...G. TP SCH (09:00)
[2018-10-05 09:30] VITALS: BP_SYST 120
--- NOTE | 2018-10-05 09:57 | NUR ---
IV PLACEMENT: #22 gauge angiocath placed to left forearm. Use of asceptic technique. Opsite placed over site. Blood return noted. Flushed with 10 cc of normal saline. No evidence of infiltration noted. Patient tolerated well.
[2018-10-05] MEDS ORDERED: VANCOMYCIN HCL 750 MG/NS 250 ML IV SCH (10:00)
--- NOTE | 2018-10-05 10:00 | NUR ---
Medications educated patient regarding meds, verbalized understanding, tolerated well, pain meds given per protocol, IV site patent, no other needs at this time, educated patient regarding use of dillan light for assistance, verbalized understanding, call light and bedside table left within reach, will continue to monitor
[2018-10-05] MEDS ORDERED: CEPH-568 PO (10:54)
[2018-10-05 10:57] VITALS: BP_SYST 120
--- NOTE | 2018-10-05 11:30 | NUR ---
D/C Patient Patient given medication reconciliation form and D/C instructions. Exit Care provided. Patient verbalized understanding. Patient did not want to finish antibiotics at this time, stated he wants to leave. Educated him on risks of not finishing antibiotic, verbalized understanding. Ambulatory with steady gait for discharge to residence. Patient in stable condition, ID band removed. IV catheter removed, intact and dressing applied, no active bleeding. Rx of Keflex given. Patient educated on pain management. All belongings sent with patient.
== END 2018-10-05 11:30 | disposition home or self-care (01) | DRG 383 ==
LOC: SED 07:58 → SMU 17:40
PROVIDERS: ADMIT Internal Medicine Hospice and Palliative Medicine; ATTEND Internal Medicine Hospice and Palliative Medicine
DX: L03.116 Cellulitis of left lower limb (principal); G92 Toxic encephalopathy; Z59.0 Homelessness; F11.90 Opioid use, unspecified, uncomplicated; F15.10 Other stimulant abuse, uncomplicated; F20.0 Paranoid schizophrenia; G89.29 Other chronic pain; Z88.8 Allergy status to other drugs, medicaments and biological substances
CPT/HCPCS: 36415; 70450-TC; 71045; 80053; 80202-TC; 80307; 82607; 82746; 84443-TC; 85025; 86592; 87040-TC; 93005; 96361; 96365; 96375; 99285; G0480; G0481; G0482; J0690; J0696; J1200; J1630; J2060; J2270; J3370; J3490; J7042; J7050; J7060